=== PATIENT | female | born 1950 ===

== ENCOUNTER 2023-08-14 10:42 | Outpatient (CLI) | payer OTHER | END 2023-08-14 10:51 | disposition home or self-care (01) | LOC: MRI 10:42 | DX: M25.561 Pain in right knee (principal) | CPT/HCPCS: 73721 ==

== ENCOUNTER 2023-08-24 10:36 | Outpatient (CLI) | payer OTHER | END 2023-08-24 10:48 | disposition home or self-care (01) | LOC: NUCLEAR 10:36 | PROVIDERS: ATTEND General Practice | DX: M19.90 Unspecified osteoarthritis, unspecified site (principal); M79.661 Pain in right lower leg ==

== ENCOUNTER 2023-08-25 10:35 | Outpatient (CLI) | payer OTHER | END 2023-08-25 10:36 | disposition home or self-care (01) | LOC: NUCLEAR 10:35 | PROVIDERS: ATTEND General Practice | DX: M79.661 Pain in right lower leg (principal) ==

== ENCOUNTER → 2024-07-10 | Outpatient (CLI) | payer OTHER | END | disposition home or self-care (01) | LOC: MRI 07-09 15:02 | PROVIDERS: ATTEND Anesthesiology | DX: M25.512 Pain in left shoulder (principal) | CPT/HCPCS: 73221 ==

== ENCOUNTER 2024-09-11 10:47 | Outpatient (CLI) | payer OTHER | END 2024-09-11 12:00 | disposition home or self-care (01) | LOC: TOM 10:47 | DX: M19.012 Primary osteoarthritis, left shoulder (principal) ==

== ENCOUNTER 2024-11-15 09:38 | Outpatient (CLI) | payer OTHER | END 2024-11-15 09:41 | disposition home or self-care (01) | LOC: RAD 09:38 | DX: M19.112 Post-traumatic osteoarthritis, left shoulder (principal) ==

== ENCOUNTER 2025-05-08 09:23 | Outpatient (CLI) | payer OTHER | END 2025-05-08 09:27 | disposition home or self-care (01) | LOC: RAD 09:23 | DX: M19.012 Primary osteoarthritis, left shoulder (principal) ==